=== PATIENT | female | born 1960 | race American Indian/Alaskan Native ===

== ENCOUNTER 2016-11-28 09:22 | Outpatient (CLI) | payer BC ==
--- NOTE | 2016-11-28 14:27 | Mammography Report ---
BILATERAL DIGITAL SCREENING MAMMOGRAM with CAD: 11/28/16 09:22:00 CLINICAL: Routine screening. COMPARISON:11/23/15 FINDINGS: The breasts are heterogeneously dense, which may obscure small masses. No mass, architectural distortion or suspicious calcifications. IMPRESSION: No mammographic evidence of malignancy. BI-RADS CATEGORY: 1 - - Negative RECOMMENDATION: Routine mammographic screening in one year. COMMENT: Patient follow-up letters are generated by our [employer] application.
== END 2016-11-28 09:23 | disposition home or self-care (01) ==
LOC: SPVWC 09:22
PROVIDERS: ATTEND Internal Medicine
DX: Z12.31 Encounter for screening mammogram for malignant neoplasm of breast (principal)
CPT/HCPCS: 77067; G0202

== ENCOUNTER 2017-04-27 09:18 | Outpatient (CLI) | payer BC ==
--- NOTE | 2017-04-29 09:31 | Vascular Lab Report ---
LOWER EXTREMITY ARTERIAL PHYSIOLOGIC STUDY: REASON FOR EXAM: Peripheral arterial disease. COMMENTS ON THE RIGHT: Ankle brachial index is 1.04. This value is normal. Toe brachial index is 1.02. This value is normal. Wound healing is likely. Pulse volume recording at the level of the ankle is normal. Exercise testing was not done. COMMENTS ON THE LEFT: Ankle brachial index is 1.04. This value is normal. Toe brachial index is 0.99. This value is normal. Wound healing is likely. Pulse volume recording at the level of the ankle is normal. Exercise testing was not done. IMPRESSION: RIGHT: No hemodynamically significant arterial disease. LEFT:No hemodynamically significant arterial disease.
== END 2017-04-27 09:19 | disposition home or self-care (01) ==
LOC: VAS 09:18
PROVIDERS: ATTEND Nurse Practitioner Family
DX: M79.605 Pain in left leg (principal)
CPT/HCPCS: 93922

== ENCOUNTER 2018-03-19 12:42 | Outpatient (CLI) | payer BC ==
--- NOTE | 2018-03-19 14:46 | Mammography Report ---
BILATERAL DIGITAL SCREENING MAMMOGRAM with CAD: 03/19/18 12:42:00 CLINICAL: Routine screening. COMPARISON:11/28/16 FINDINGS: The breasts are heterogeneously dense, which may obscure small masses. No mass, architectural distortion or suspicious calcifications. IMPRESSION: No mammographic evidence of malignancy. BI-RADS CATEGORY: 1 - - Negative RECOMMENDATION: Routine mammographic screening in one year. COMMENT: Patient follow-up letters are generated by our [employer] application.
== END 2018-03-19 12:43 | disposition home or self-care (01) ==
LOC: SPVWC 12:42
PROVIDERS: ATTEND Internal Medicine
DX: Z12.31 Encounter for screening mammogram for malignant neoplasm of breast (principal)
CPT/HCPCS: 77067

== ENCOUNTER 2019-04-22 08:23 | Outpatient (CLI) | payer BC ==
--- NOTE | 2019-04-25 10:17 | Mammography Report ---
DIGITAL SCREENING MAMMOGRAM WITH CAD, 04/22/2019 INDICATION: Routine screening mammography. TECHNIQUE: Digital bilateral 2D mammography was obtained in the craniocaudal and mediolateral obliq ue projections. This examination was interpreted with the benefit of Computer-Aided Detection analysi s. COMPARISON: 03/19/2018 FINDINGS: Breast Density: The breasts are heterogeneously dense, which may obscure small masses. There is no evidence of dominant mass, suspicious calcifications or architectural distortion in eithe r breast. IMPRESSION: No mammographic evidence of malignancy. Follow up recommendation: Routine yearly BI-RADS Category 1: Negative. A "normal" or negative report should not discourage follow up or biopsy of a clinically significant f inding. A written summary of these findings will be mailed to the patient. The patient will be entered into a mammography reporting system which will generate a reminder letter for the patient's next appointmen t at the appropriate interval. The [employer] recommends yearly mammograms starting at age 40 and continuing as l mario alberto as a woman is in good health. Breast MRI is recommended for women with an approximate 20-25% or greater lifetime risk of breast cancer, including women with a strong family history of breast or ova berenice cancer or who have been treated for Hodgkin's disease. Signer Name: Hayden Maza MD Signed: 04/25/2019 10:12 AM Workstation Name: [id number]
== END 2019-04-22 08:24 | disposition home or self-care (01) ==
LOC: SPVWC 08:23
PROVIDERS: ATTEND Internal Medicine
DX: Z12.31 Encounter for screening mammogram for malignant neoplasm of breast (principal)
CPT/HCPCS: 77067

== ENCOUNTER 2020-11-02 14:00 | Outpatient (CLI) | payer BC | END 2020-11-02 14:01 | disposition home or self-care (01) | LOC: SPVWC 14:00 | PROVIDERS: ATTEND Internal Medicine | DX: Z12.31 Encounter for screening mammogram for malignant neoplasm of breast (principal) | CPT/HCPCS: 77067 ==

== ENCOUNTER 2021-06-18 09:27 | Inpatient (IN) | payer BC ==
[2021-06-18 16:29] LABS: Basophils % (Auto) 0.3 % (0.0-1.8); Hematocrit 45.2 % (30.3-42.9); Hemoglobin 14.8 gm/dl (10.1-14.3); Lymphocytes # (Auto) 0.8 K/mm3 (1.2-5.4); Lymphocytes % (Auto) 7.9 % (13.4-35.0); Mean Corpuscular HGB Conc 33 % (30-34); Mean Corpuscular Volume 86 fl (79-97); Monocytes # (Auto) 0.9 K/mm3 (0.0-0.8); Monocytes % (Auto) 8.6 % (0.0-7.3); Platelet Count 142 K/mm3 (140-440); Red Blood Count 5.27 M/mm3 (3.65-5.03); Red Cell Distribution Width 14.7 % (13.2-15.2)
[2021-06-18 16:39] LABS: Alanine Aminotransferase 9 units/L (7-56); Albumin 4.5 g/dL (3.9-5); Blood Urea Nitrogen 13 mg/dL (7-17); Calcium 9.5 mg/dL (8.4-10.2); Hemolysis Index 8
[2021-06-18 17:05] LABS: BUN/Creatinine Ratio 19
[2021-06-18] MEDS ORDERED: SODIUM CHLORIDE 0.9% 1000 ML 1,000 ML IV ONE (20:25)
[2021-06-18] MEDS ORDERED: MORPHINE 4 MG/1 ML INJ IV ONE (20:25)
[2021-06-18] MEDS ORDERED: ONDANSETRON 4 MG/2 ML INJ IV ONE (20:25)
--- NOTE | 2021-06-18 20:26 | Emergency Department Report ---
ED General Adult HPI - General Chief complaint: Abdominal Pain Stated complaint: POSS APPENDICITIS Time Seen by Provider: 06/18/21 20:19 Source: patient, RN notes reviewed Mode of arrival: Ambulatory Limitations: No Limitations - History of Present Illness Initial comments: This patient is a pleasant and cooperative 61-year-old female, who was referred to the emergency room by her primary care doctor to rule out appendicitis she complains of suprapubic and right lower quadrant pain, with nausea since yesterday. Denies additional complaints. Positive anorexia. Reports that she still has her appendix. Has never had pain like this before. -: Gradual, days(s) Radiation: abdomen Quality: sharp Consistency: constant Improves with: rest Worsens with: movement - Related Data Allergies Allergy/AdvReac Type Severity Reaction Status Date / Time codeine Allergy Hives Verified 06/18/21 20:55 latex Allergy Hives Verified 06/18/21 20:55 Penicillins Allergy Hives Verified 06/18/21 20:55 Sulfa (Sulfonamide Allergy Hives Verified 06/18/21 20:55 Antibiotics) ED Review of Systems ROS: Stated complaint: POSS APPENDICITIS Other details as noted in HPI Constitutional: malaise, weakness. denies: fever Eyes: denies: vision change ENT: denies: epistaxis Respiratory: denies: cough Cardiovascular: denies: chest pain Gastrointestinal: abdominal pain, nausea, vomiting Genitourinary: denies: dysuria Musculoskeletal: back pain Neurological: weakness Hematological/Lymphatic: denies: easy bleeding ED Physical Exam - General Limitations: No Limitations General appearance: alert, in no apparent distress - Head Head exam: Present: atraumatic, normocephalic - Eye Eye exam: Present: normal appearance, EOMI. Absent: nystagmus - ENT ENT exam: Present: normal exam, normal orophraynx, mucous membranes moist, normal external ear exam - Neck Neck exam: Present: normal inspection, full ROM. Absent: tenderness, meningismus - Respiratory Respiratory exam: Present: normal lung sounds bilaterally. Absent: respiratory distress, wheezes, rales, rhonchi, stridor, chest wall tenderness - Cardiovascular Cardiovascular Exam: Present: regular rate, normal rhythm, normal heart sounds. Absent: bradycardia, tachycardia, irregular rhythm, systolic murmur, diastolic murmur, rubs, gallop - GI/Abdominal GI/Abdominal exam: Present: soft, tenderness, guarding (There is voluntary guarding), other (There is right lower quadrant tenderness). Absent: distended, rebound, rigid, pulsatile mass - Extremities Exam Extremities exam: Present: normal inspection, full ROM, other (2+ pulses noted in the bilateral upper and lower extremities. There is no palpable cord. negative Homans sign. Muscular compartments are soft. The pelvis is stable.). Absent: pedal edema, calf tenderness - Back Exam Back exam: Present: normal inspection, CVA tenderness (R). Absent: tenderness, paraspinal tenderness, vertebral tenderness - Neurological Exam Neurological exam: Present: alert, oriented X3, other (No facial droop. Tongue midline. Extraocular movements intact bilaterally. Facial sensation intact to light touch in V1, V2, V3 distribution bilaterally. 5 and a 5 strength in 4 extremities. Sensation intact to light touch in 4 extremities.). Absent: motor sensory deficit - Psychiatric Psychiatric exam: Present: anxious - Skin Skin exam: Present: warm, dry, intact, normal color. Absent: rash ED Course Vital Signs 06/18/21 06/18/21 06/18/21 10:14 20:35 20:36 Temperature 98.5 F 99.4 F Pulse Rate 68 67 Respiratory 18 15 18 Rate Blood Pressure 153/92 152/82 [Left] O2 Sat by Pulse 100 100 Oximetry O2 Sat by Pulse Oximetry [ Digit-Finger] 06/18/21 22:10 Temperature Pulse Rate Respiratory Rate Blood Pressure [Left] O2 Sat by Pulse Oximetry O2 Sat by Pulse 99 Oximetry [ Digit-Finger] - Reevaluation(s) Reevaluation #1: 06/18/21 21:06 Differential diagnosis, including not limited to: Appendicitis, inflammatory bowel disease, renal colic, obstruction, colitis, diverticulitis, perforation Assessment and plan: 61-year-old female presenting with suprapubic and right lower quadrant pain, with nausea and vomiting. She is tender with voluntary guarding. Very suspicious for appendicitis versus renal colic. Place patient on bus driver/monitor, start fluids, pain medication, nausea medication, obtain CT scan abdomen pelvis, and reassess. Discussed this plan of care with the patient. She is agreeable to the plan of care. Reassess after CT scan abdomen pelvis has resulted 06/18/21 22:09 CT scan confirms acute uncomplicated appendicitis. Antibiotics ordered. Patient still having pain, but slightly more comfortable. Requesting additional pain medication. Reports he can tolerate morphine/fentanyl/Dilaudid. General surgery consulted. Awaiting callback. Patient agreeable to admission hospitalization. All questions answered. Hospital physician, Dr. Ricardo Redd to admit to [facility] - Consultations Consultation #1: 06/18/21 22:13 Discussed the patient's history, physical, laboratory studies and imaging studies and CT scan findings with general surgery on-call, Dr. Judi Sosa She agrees with the plan of care, and will follow in consultation. - Pulse Oximetry Interpretation Digit-Finger Initial Pulse Oximetry Readin O2 Sat by Pulse Oximetry: 99 Actions Taken: none ED Medical Decision Making - Lab Data Result diagrams: 06/18/21 15:55 06/18/21 15:55 Vital Signs 06/18/21 06/18/21 06/18/21 10:14 20:35 20:36 Temperature 98.5 F 99.4 F Pulse Rate 68 67 Respiratory 18 15 18 Rate Blood Pressure 153/92 152/82 [Left] O2 Sat by Pulse 100 100 Oximetry Lab Results 06/18/21 06/18/21 06/18/21 Range/Units 15:55 15:55 Unknown WBC 10.0 (4.5-11.0) K/mm3 RBC 5.27 H (3.65-5.03) M/mm3 Hgb 14.8 H (10.1-14.3) gm/dl Hct 45.2 H (30.3-42.9) % MCV 86 (79-97) fl MCH 28 (28-32) pg MCHC 33 (30-34) % RDW 14.7 (13.2-15.2) % Plt Count 142 (140-440) K/mm3 Lymph % (Auto) 7.9 L (13.4-35.0) % [place] % (Auto) 8.6 H (0.0-7.3) % Eos % (Auto) 0.0 (0.0-4.3) % Baso % (Auto) 0.3 (0.0-1.8) % Lymph # (Auto) 0.8 L (1.2-5.4) K/mm3 [place] # (Auto) 0.9 H (0.0-0.8) K/mm3 Eos # (Auto) 0.0 (0.0-0.4) K/mm3 Baso # (Auto) 0.0 (0.0-0.1) K/mm3 Seg Neutrophils % 83.2 H (40.0-70.0) % Seg Neutrophils # 8.3 H (1.8-7.7) K/mm3 Sodium 141 (137-145) mmol/L Potassium 4.0 (3.6-5.0) mmol/L Chloride 101.0 (98-107) mmol/L Carbon Dioxide 26 (22-30) mmol/L Anion Gap 18 mmol/L BUN 13 (7-17) mg/dL Creatinine 0.7 (0.6-1.2) mg/dL Estimated GFR > 60 ml/min BUN/Creatinine Ratio 19 % Glucose 122 H (65-100) mg/dL Calcium 9.5 (8.4-10.2) mg/dL Total Bilirubin 0.80 (0.1-1.2) mg/dL AST 15 (5-40) units/L ALT 9 (7-56) units/L Alkaline Phosphatase 99 (35-129) units/L Total Protein 7.9 (6.3-8.2) g/dL Albumin 4.5 (3.9-5) g/dL Albumin/Globulin Ratio 1.3 % Urine Color Yellow (Yellow) Urine Turbidity Clear (Clear) Urine pH 5.0 (5.0-7.0) Ur Specific [place] 1.036 H (1.003-1.030) Urine Protein <15 mg/dl (Negative) mg/dL Urine Glucose (UA) >=500 (Negative) mg/dL Urine Ketones Tr (Negative) mg/dL Urine Blood Sm (Negative) Urine Nitrite Neg (Negative) Urine Bilirubin Neg (Negative) Urine Urobilinogen < 2.0 (<2.0) mg/dL Ur Leukocyte Esterase Neg (Negative) Urine WBC (Auto) 2.0 (0.0-6.0) /HPF Urine RBC (Auto) 3.0 (0.0-6.0) /HPF U Epithel Cells (Auto) 8.0 (0-13.0) /HPF Urine Mucus 1+ /HPF - EKG Data -: EKG Interpreted by [facility] EKG shows normal: sinus rhythm Rate: normal - EKG Data 06/18/21 21:06 The EKG is interpreted at 20: 40 Sinus rhythm, rate 78 bpm. Normal axis, normal P wave axis, QTC 49 ms, nonspecific T wave abnormality. This EKG is not a STEMI - Radiology Data Radiology results: pending, report reviewed, image reviewed CT ABDOMEN AND PELVIS WITH CONTRAST INDICATION / CLINICAL INFORMATION: Right lower quadrant abdominal pain. TECHNIQUE: Axial CT images were obtained through the abdomen and pelvis after IV contrast. All CT scans at this location are performed using CT dose reduction for ALARA by means of automated exposure control. COMPARISON: None available. FINDINGS: LOWER CHEST: No significant abnormality. LIVER: Large hepatic cyst measuring 6.6 x 2.3 cm. Additional scattered hypodensities are too small to characterize but also likely represent cysts. GALLBLADDER: No significant abnormality. BILE DUCTS: No significant abnormality. PANCREAS: No significant abnormality. SPLEEN: No significant a bnormality. ADRENALS: No significant abnormality. RIGHT KIDNEY / URETER: No significant abnormality. LEFT KIDNEY / URETER: No significant abnormality. STOMACH / SMALL BOWEL: No significant abnormality. COLON: No significant abnormality. APPENDIX: The appendix is dilated but is not clearly seen due to surrounding edema and fluid. No free air or organized abscess identified. PERITONEUM: There is free fluid in the right lower quadrant and right pelvis. LYMPH NODES: No significant adenopathy. AORTA / ARTERIES: No significant abnormality. IVC / VEINS: No significant abnormality. URINARY BLADDER: No significant abnormality. REPRODUCTIVE ORGANS: No significant abnormality. ADDITIONAL FINDINGS: None. SKELETAL SYSTEM: No significant abnormality. IMPRESSION: 1. Dilated appendix with surrounding fluid and stranding consistent with acute appendicitis. No free air or organized fluid collection identified. However, contained rupture cannot be excluded due to degree of inflammation in the right lower quadrant/pelvis. 2. Incidental findings as above. Signer Name: Inocencio Lares MD Signed: 06/18/2021 8:54 PM Workstation Name: [id number] Critical care attestation.: If time is entered above; I have spent that time in minutes in the direct care of this critically ill patient, excluding procedure time. ED Disposition Clinical Impression: Right lower quadrant abdominal pain, Nausea and vomiting, Acute appendicitis Disposition: 09 ADMITTED INPATIENT Is pt being admited?: Yes Does the pt Need Aspirin: No Condition: Good Instructions: Abdominal Pain (ED)
[2021-06-18 20:33] LABS: Bilirubin,Urine NEG (Negative); Blood,Urine SM (Negative); Color,Urine Yellow (Yellow); Mucus,Urine 1+ /HPF; Protein,Urine <15 mg/dL mg/dL (Negative); Urobilinogen,Urine < 2.0 mg/dL (<2.0)
--- NOTE | 2021-06-18 21:58 | Cat Scan Report ---
CT ABDOMEN AND PELVIS WITH CONTRAST INDICATION / CLINICAL INFORMATION: Right lower quadrant abdominal pain. TECHNIQUE: Axial CT images were obtained through the abdomen and pelvis after IV contrast. All CT sc ans at this location are performed using CT dose reduction for ALARA by means of automated exposure c ontrol. COMPARISON: None available. FINDINGS: LOWER CHEST: No significant abnormality. LIVER: Large hepatic cyst measuring 6.6 x 2.3 cm. Additional scattered hypodensities are too small to characterize but also likely represent cysts. GALLBLADDER: No significant abnormality. BILE DUCTS: No significant abnormality. PANCREAS: No significant abnormality. SPLEEN: No significant abnormality. ADRENALS: No significant abnormality. RIGHT KIDNEY / URETER: No significant abnormality. LEFT KIDNEY / URETER: No significant abnormality. STOMACH / SMALL BOWEL: No significant abnormality. COLON: No significant abnormality. APPENDIX: The appendix is dilated but is not clearly seen due to surrounding edema and fluid. No free air or organized abscess identified. PERITONEUM: There is free fluid in the right lower quadrant and right pelvis. LYMPH NODES: No significant adenopathy. AORTA / ARTERIES: No significant abnormality. IVC / VEINS: No significant abnormality. URINARY BLADDER: No significant abnormality. REPRODUCTIVE ORGANS: No significant abnormality. ADDITIONAL FINDINGS: None. SKELETAL SYSTEM: No significant abnormality. IMPRESSION: 1. Dilated appendix with surrounding fluid and stranding consistent with acute appendicitis. No free air or organized fluid collection identified. However, contained rupture cannot be excluded due to de gree of inflammation in the right lower quadrant/pelvis. 2. Incidental findings as above. Signer Name: Inocencio Lares MD Signed: 06/18/2021 9:54 PM Workstation Name: [id number]
[2021-06-18] MEDS ORDERED: metroNIDAZOLE/NS 500 MG/100 ML 500 MG/100 ML BAG IV ONE (22:07)
[2021-06-18] MEDS ORDERED: HYDROmorphone 1 MG/1 ML INJ IV ONE (22:09)
[2021-06-18] MEDS ORDERED: ONDANSETRON 4 MG/2 ML INJ IV PRN (22:53)
[2021-06-18] MEDS ORDERED: ACETAMINOPHEN 325 MG TAB PO PRN (22:53)
[2021-06-18] MEDS ORDERED: MAGNESIUM HYDROXIDE (MOM) ORAL LIQD UDC PO PRN (22:53)
--- NOTE | 2021-06-18 23:01 | History and Physical Report ---
History of Present Illness Date of examination: 06/18/21 Date of admission: 06/18/2021 Chief complaint: Abdominal pain History of present illness: 61-year-old -French female with no significant past medical history presenting the emergency room today complaining of abdominal pain. Patient had been referred to the emergency room by her primary care physician for possible appendicitis. She had complained of a pain in the lower part of her abdomen. She has had associated nausea but no vomiting and no diarrhea. She denies any constipation. Denies any fever or chills, no chest pain or shortness of breath, no hematuria or dysuria. No known relieving or exacerbating factor for the abdominal pain. Work-up in the emergency room today, CT of the abdomen and pelvis reveals findings consistent with acute appendicitis. General surgeon on-call has been consulted for further evaluation and recommendations. Patient has been commenced on analgesic medication, IV fluid and empiric IV antibiotics. Past History Past Medical History: No medical history Past Surgical History: No surgical history Social history: no significant social history Family history: no significant family history Medications and Allergies Allergies Allergy/AdvReac Type Severity Reaction Status Date / Time codeine Allergy Hives Verified 06/18/21 20:55 latex Allergy Hives Verified 06/18/21 20:55 Penicillins Allergy Hives Verified 06/18/21 20:55 Sulfa (Sulfonamide Allergy Hives Verified 06/18/21 20:55 Antibiotics) Active Meds: Active Medications Acetaminophen (Acetaminophen 325 Mg Tab) 650 mg PO Q4H PRN PRN Reason: Pain MILD(1-3)/Fever >100.5/NEGRO Levofloxacin/Dextrose (Levaquin 750mg/150ml) 750 mg in 150 mls @ 100 mls/hr IV ONCE ONE; Protocol Stop: 06/18/21 23:36 Ondansetron HCl (Ondansetron 4 Mg/2 Ml Inj) 4 mg IV Q8H PRN PRN Reason: Nausea And Vomiting Sodium Chloride (Sodium Chloride 0.9% 10 Ml Flush Syringe) 10 ml IV BID PRASHANT Review of Systems Constitutional: no fever, no chills Ears, nose, mouth and throat: no nasal congestion, no sore throat Cardiovascular: no chest pain, no orthopnea, no palpitations Respiratory: no cough, no shortness of breath Gastrointestinal: abdominal pain, nausea, vomiting, no diarrhea Musculoskeletal: no neck pain, no low back pain Integumentary: no rash, no pruritis Neurological: no headaches, no confusion Psychiatric: no anxiety, no depression Endocrine: no polyphagia, no polydipsia, no polyuria, no nocturia Exam - Constitutional Vitals: Temp Pulse Resp BP Pulse Ox 99.4 F 67 18 152/82 99 06/18/21 20:35 06/18/21 20:35 06/18/21 22:45 06/18/21 20:35 06/18/21 22:14 General appearance: Present: no acute distress, well-nourished - EENT Eyes: Present: PERRL, EOM intact. Absent: scleral icterus ENT: hearing intact, clear oral mucosa, dentition normal - Neck Neck: Present: supple, normal ROM - Respiratory Respiratory effort: normal Respiratory: bilateral: CTA - Cardiovascular Rhythm: regular Heart Sounds: Present: S1 & S2. Absent: gallop, systolic murmur, diastolic murmur, rub, click - Extremities Extremities: no ischemia, pulses intact, pulses symmetrical, No edema, normal temperature, normal color, Full ROM Peripheral Pulses: within normal limits - Abdominal General gastrointestinal: Present: soft, tender (Tenderness and guarding right lower quadrant ,No rebound tenderness.), non-distended, normal bowel sounds. Absent: mass - Integumentary Integumentary: Present: clear, warm, dry, normal turgor. Absent: rash - Musculoskeletal Musculoskeletal: strength equal bilaterally - Psychiatric Psychiatric: appropriate mood/affect, intact judgment & insight, memory intact, cooperative - Neurologic Neurologic: CNII-XII intact, no focal deficits, moves all extremities Results - Labs CBC & Chem 7: 06/18/21 15:55 06/18/21 15:55 Labs: Abnormal lab results 06/18/21 06/18/21 06/18/21 Range/Units 15:55 15:55 Unknown RBC 5.27 H (3.65-5.03) M/mm3 Hgb 14.8 H (10.1-14.3) gm/dl Hct 45.2 H (30.3-42.9) % Lymph % (Auto) 7.9 L (13.4-35.0) % [place] % (Auto) 8.6 H (0.0-7.3) % Lymph # (Auto) 0.8 L (1.2-5.4) K/mm3 [place] # (Auto) 0.9 H (0.0-0.8) K/mm3 Seg Neutrophils % 83.2 H (40.0-70.0) % Seg Neutrophils # 8.3 H (1.8-7.7) K/mm3 Glucose 122 H (65-100) mg/dL Ur Specific [place] 1.036 H (1.003-1.030) Assessment and Plan - Patient Problems (1) Acute appendicitis Current Visit: Yes Status: Acute Plan to address problem: Patient placed on IV fluid and analgesic medication. We make patient NPO. Consult placed to general surgeon for further evaluation and recommendations. (2) Nausea and vomiting Current Visit: Yes Status: Acute Plan to address problem: Possibly secondary to the acute appendicitis. Patient will be given antiemetic as needed. (3) DVT prophylaxis Current Visit: Yes Status: Acute Plan to address problem: Patient placed on sequential compression device. (4) Full code status Current Visit: Yes Status: Acute Plan to address problem: Patient is full code.
[2021-06-19] MEDS: MORPHINE 2 MG/1 ML INJ IV PRN ×2 (01:44→22:20)
[2021-06-19] MEDS: SODIUM CHLORIDE 0.9% 1000 ML 1,000 ML IV SCH ×2 (02:05→05:40)
[2021-06-19 05:15] LABS: Basophils % (Auto) 0.2 % (0.0-1.8); Eosinophils % (Auto) 0.1 % (0.0-4.3); Hematocrit 39.4 % (30.3-42.9); Hemoglobin 12.7 gm/dl (10.1-14.3); Lymphocytes # (Auto) 0.8 K/mm3 (1.2-5.4); Lymphocytes % (Auto) 9.5 % (13.4-35.0); Mean Corpuscular HGB Conc 32 % (30-34); Mean Corpuscular Volume 86 fl (79-97); Monocytes # (Auto) 0.8 K/mm3 (0.0-0.8); Monocytes % (Auto) 9.9 % (0.0-7.3); Platelet Count 122 K/mm3 (140-440); Red Cell Distribution Width 14.4 % (13.2-15.2)
[2021-06-19 05:37] LABS: BUN/Creatinine Ratio 18; Blood Urea Nitrogen 14 mg/dL (7-17); Calcium 8.4 mg/dL (8.4-10.2); Hemolysis Index 12
[2021-06-19] MEDS: metroNIDAZOLE/NS 500 MG/100 ML 500 MG/100 ML BAG IV SCH ×3 (05:38→22:09)
[2021-06-19] MEDS: MORPHINE 4 MG/1 ML INJ IV PRN ×2 (05:43→13:18)
--- NOTE | 2021-06-19 10:46 | Progress Note ---
Assessment and Plan Assessment and plan: 61-year-old -[place] female with no significant past medical history presented the emergency room today complaining of abdominal pain. Patient had been referred to the emergency room by her primary care physician for possible appendicitis. She had complained of a pain in the lower part of her abdomen. She had associated nausea but no vomiting and no diarrhea. Work-up in the emergency room revealed CT of the abdomen and pelvis with findings of acute appendicitis. General surgeon on-call was consulted for further evaluation and recommendations. Patient received analgesic medication, IV fluid and empiric IV antibiotics. Acute appendicitis Abdominal pain 06/19/2021. Await general surgery recommendations for probable lap appendectomy. Continue IV pain medications, IV fluids and IV antibiotics. History Interval history: No new issues overnight. Patient still complains of abdominal pain. Hospitalist Physical - Constitutional Vitals: Temp Pulse Resp BP Pulse Ox 98.5 F 66 18 98/52 98 06/19/21 04:42 06/19/21 04:42 06/19/21 04:42 06/19/21 04:42 06/19/21 04:42 General appearance: Present: no acute distress, well-nourished - EENT Eyes: Present: PERRL, EOM intact ENT: hearing intact, clear oral mucosa, dentition normal - Neck Neck: Present: supple, normal ROM - Respiratory Respiratory effort: normal Respiratory: bilateral: CTA - Cardiovascular Rhythm: regular Heart Sounds: Present: S1 & S2. Absent: gallop, rub - Extremities Extremities: no ischemia, No edema, Full ROM - Abdominal General gastrointestinal: soft, non-tender, non-distended, normal bowel sounds - Integumentary Integumentary: Present: clear, warm, dry - Neurologic Neurologic: CNII-XII intact, moves all extremities Results - Labs CBC & Chem 7: 06/19/21 04:27 06/19/21 04:27 Labs: Laboratory Last Values WBC 8.1 K/mm3 (4.5-11.0) 06/19/21 04:27 RBC 4.60 M/mm3 (3.65-5.03) 06/19/21 04:27 Hgb 12.7 gm/dl (10.1-14.3) 06/19/21 04:27 Hct 39.4 % (30.3-42.9) 06/19/21 04:27 MCV 86 fl (79-97) 06/19/21 04:27 MCH 28 pg (28-32) 06/19/21 04:27 MCHC 32 % (30-34) 06/19/21 04:27 RDW 14.4 % (13.2-15.2) 06/19/21 04:27 Plt Count 122 K/mm3 (140-440) L 06/19/21 04:27 Lymph % (Auto) 9.5 % (13.4-35.0) L 06/19/21 04:27 [place] % (Auto) 9.9 % (0.0-7.3) H 06/19/21 04:27 Eos % (Auto) 0.1 % (0.0-4.3) 06/19/21 04:27 Baso % (Auto) 0.2 % (0.0-1.8) 06/19/21 04:27 Lymph # (Auto) 0.8 K/mm3 (1.2-5.4) L 06/19/21 04:27 [place] # (Auto) 0.8 K/mm3 (0.0-0.8) 06/19/21 04:27 Eos # (Auto) 0.0 K/mm3 (0.0-0.4) 06/19/21 04:27 Baso # (Auto) 0.0 K/mm3 (0.0-0.1) 06/19/21 04:27 Seg Neutrophils % 80.3 % (40.0-70.0) H 06/19/21 04:27 Seg Neutrophils # 6.5 K/mm3 (1.8-7.7) 06/19/21 04:27 Sodium 141 mmol/L (137-145) 06/19/21 04:27 Potassium 4.3 mmol/L (3.6-5.0) 06/19/21 04:27 Chloride 104.2 mmol/L (98-107) 06/19/21 04:27 Carbon Dioxide 23 mmol/L (22-30) 06/19/21 04:27 Anion Gap 18 mmol/L 06/19/21 04:27 BUN 14 mg/dL (7-17) 06/19/21 04:27 Creatinine 0.8 mg/dL (0.6-1.2) 06/19/21 04:27 Estimated GFR > 60 ml/min 06/19/21 04:27 BUN/Creatinine Ratio 18 % 06/19/21 04:27 Glucose 95 mg/dL (65-100) 06/19/21 04:27 Calcium 8.4 mg/dL (8.4-10.2) 06/19/21 04:27 Total Bilirubin 0.80 mg/dL (0.1-1.2) 06/18/21 15:55 AST 15 units/L (5-40) 06/18/21 15:55 ALT 9 units/L (7-56) 06/18/21 15:55 Alkaline Phosphatase 99 units/L (35-129) 06/18/21 15:55 Total Protein 7.9 g/dL (6.3-8.2) 06/18/21 15:55 Albumin 4.5 g/dL (3.9-5) 06/18/21 15:55 Albumin/Globulin Ratio 1.3 % 06/18/21 15:55 Urine Color Yellow (Yellow) 06/18/21 Unknown Urine Turbidity Clear (Clear) 06/18/21 Unknown Urine pH 5.0 (5.0-7.0) 06/18/21 Unknown Ur Specific [place] 1.036 (1.003-1.030) H 06/18/21 Unknown Urine Protein <15 mg/dl mg/dL (Negative) 06/18/21 Unknown Urine Glucose (UA) >=500 mg/dL (Negative) 06/18/21 Unknown Urine Ketones Tr mg/dL (Negative) 06/18/21 Unknown Urine Blood Sm (Negative) 06/18/21 Unknown Urine Nitrite Neg (Negative) 06/18/21 Unknown Urine Bilirubin Neg (Negative) 06/18/21 Unknown Urine Urobilinogen < 2.0 mg/dL (<2.0) 06/18/21 Unknown Ur Leukocyte Esterase Neg (Negative) 06/18/21 Unknown Urine WBC (Auto) 2.0 /HPF (0.0-6.0) 06/18/21 Unknown Urine RBC (Auto) 3.0 /HPF (0.0-6.0) 06/18/21 Unknown U Epithel Cells (Auto) 8.0 /HPF (0-13.0) 06/18/21 Unknown Urine Mucus 1+ /HPF 06/18/21 Unknown Tan/IV: Voiding Method Toilet Active Medications - Current Medications Current Medications: Generic Name Dose Route Start Last Admin Trade Name Freq PRN Reason Stop Dose Admin Acetaminophen 650 mg 06/18/21 22:53 Acetaminophen 325 Mg Tab PO Q4H PRN Pain MILD(1-3)/Fever >100.5/NEGRO Sodium Chloride 1,000 mls @ 125 mls/hr 06/18/21 23:00 06/19/21 05:40 Nacl 0.9% 1000 Ml IV 125 mls/hr DIRECT PRASHANT Administration Levofloxacin/Dextrose 750 mg in 150 mls @ 100 mls/hr 06/19/21 22:00 Levaquin 750mg/150ml IV Q24H PRASHANT Protocol Metronidazole 500 mg in 100 mls @ 100 mls/hr 06/19/21 06:00 06/19/21 05:38 Flagyl 500 Mg/100 Ml IV 100 mls/hr Q8H PRASHANT Administration Protocol Magnesium Hydroxide 30 ml 06/18/21 22:53 Magnesium Hydroxide (Mom) Oral Liqd Udc PO Q4H PRN Constipation Morphine Sulfate 2 mg 06/18/21 22:53 06/19/21 01:44 Morphine 2 Mg/1 Ml Inj IV 2 mg Q4H PRN Administration Pain, Moderate (4-6) Morphine Sulfate 4 mg 06/18/21 22:53 06/19/21 05:43 Morphine 4 Mg/1 Ml Inj IV 4 mg Q4H PRN Administration Pain , Severe (7-10) Ondansetron HCl 4 mg 06/18/21 22:53 Ondansetron 4 Mg/2 Ml Inj IV Q8H PRN Nausea And Vomiting Sodium Chloride 10 ml 06/19/21 10:00 Sodium Chloride 0.9% 10 Ml Flush Syringe IV BID PRASHANT Sodium Chloride 10 ml 06/18/21 22:53 Sodium Chloride 0.9% 10 Ml Flush Syringe IV PRN PRN LINE FLUSH
[2021-06-19] MEDS ORDERED: SCOPOLAMINE TRANSDERMAL PATCH 72 HR TD NR (13:48)
--- NOTE | 2021-06-19 13:48 | Consultation ---
History of Present Illness Consult date: 06/19/21 Reason for consult: abdominal pain Chief complaint: abd pain - History of present illness History of present illness: 67-year-old female with no past medical history who presented to the emergency room with constant, sharp/crampy right lower quadrant abdominal pain that started 48 hours ago. The patient states that the pain started near the umbilicus and then radiated down towards the right lower quadrant and pelvic area. She states that the pain did not go away on its own which prompted her to come to the emergency room. No alleviating or exacerbating factors. The pain is associated with nausea and multiple episodes of nonbilious/nonbloody emesis. No fevers or chills, chest pain, shortness of breath. The patient states that she has had similar pain in the past however it is resolved on its own. She has a very remote history of an ovarian cyst which was treated with medications and resolved. Work-up in the emergency room included a CT scan which revealed appendicitis. Past History Past Medical History: No medical history Past Surgical History: hernia repair (Umbilical) Social history: no significant social history Family history: diabetes, hypertension Medications and Allergies Allergies Allergy/AdvReac Type Severity Reaction Status Date / Time codeine Allergy Hives Verified 06/18/21 20:55 latex Allergy Hives Verified 06/18/21 20:55 Penicillins Allergy Hives Verified 06/18/21 20:55 Sulfa (Sulfonamide Allergy Hives Verified 06/18/21 20:55 Antibiotics) Home Medications Medication Instructions Recorded Confirmed Last Taken Type Empagliflozin [Jardiance] 10 mg PO DAILY 06/19/21 06/19/21 Unknown History Omeprazole 10 mg PO DAILY 06/19/21 06/19/21 Unknown History Spironolactone [Aldactone] 50 mg PO QDAY 06/19/21 06/19/21 Unknown History Valsartan [Diovan] 160 mg PO QDAY 06/19/21 06/19/21 Unknown History carvediloL [Coreg] 1 tab PO TID 06/19/21 06/19/21 Unknown History Active Meds: Active Medications Acetaminophen (Acetaminophen 325 Mg Tab) 650 mg PO Q4H PRN PRN Reason: Pain MILD(1-3)/Fever >100.5/NEGRO Sodium Chloride (Nacl 0.9% 1000 Ml) 1,000 mls @ 125 mls/hr IV DIRECT PRASHANT Last Admin: 06/19/21 05:40 Dose: 125 mls/hr Levofloxacin/Dextrose (Levaquin 750mg/150ml) 750 mg in 150 mls @ 100 mls/hr IV Q24H PRASHANT; Protocol Metronidazole (Flagyl 500 Mg/100 Ml) 500 mg in 100 mls @ 100 mls/hr IV Q8H PRASHANT; Protocol Last Admin: 06/19/21 13:18 Dose: 100 mls/hr Magnesium Hydroxide (Magnesium Hydroxide (Mom) Oral Liqd Udc) 30 ml PO Q4H PRN PRN Reason: Constipation Morphine Sulfate (Morphine 2 Mg/1 Ml Inj) 2 mg IV Q4H PRN PRN Reason: Pain, Moderate (4-6) Last Admin: 06/19/21 01:44 Dose: 2 mg Morphine Sulfate (Morphine 4 Mg/1 Ml Inj) 4 mg IV Q4H PRN PRN Reason: Pain , Severe (7-10) Last Admin: 06/19/21 13:18 Dose: 4 mg Ondansetron HCl (Ondansetron 4 Mg/2 Ml Inj) 4 mg IV Q8H PRN PRN Reason: Nausea And Vomiting Sodium Chloride (Sodium Chloride 0.9% 10 Ml Flush Syringe) 10 ml IV BID PRASHANT Last Admin: 06/19/21 11:59 Dose: 10 ml Sodium Chloride (Sodium Chloride 0.9% 10 Ml Flush Syringe) 10 ml IV PRN PRN PRN Reason: LINE FLUSH Review of Systems All systems: negative (10 point ROS performed and negative except for that listed in HPI) Exam Vital Signs Temp Pulse Resp BP Pulse Ox 98.5 F 68 18 153/92 100 06/18/21 10:14 06/18/21 10:14 06/18/21 10:14 06/18/21 10:14 06/18/21 10:14 Narrative exam: Gen.: Awake, alert, oriented x3. Mild distress secondary to abdominal pain. ENT: Trachea midline. No lymphadenopathy. No scleral icterus or conjunctival pallor CV: S1, S2 present Respiratory: No audible wheezes Abdomen: Soft, nondistended, tenderness to palpation in the suprapubic area and right lower quadrant. Rebound in the left lower quadrant. Positive voluntary guarding. No rigidity. Well-healed infraumbilical surgical scar. Extremities: No clubbing, cyanosis, edema Results - Labs 06/19/21 04:27 06/19/21 04:27 Abnormal lab results 06/18/21 06/18/21 06/18/21 Range/Units 15:55 15:55 Unknown RBC 5.27 H (3.65-5.03) M/mm3 Hgb 14.8 H (10.1-14.3) gm/dl Hct 45.2 H (30.3-42.9) % Plt Count (140-440) K/mm3 Lymph % (Auto) 7.9 L (13.4-35.0) % [place] % (Auto) 8.6 H (0.0-7.3) % Lymph # (Auto) 0.8 L (1.2-5.4) K/mm3 [place] # (Auto) 0.9 H (0.0-0.8) K/mm3 Seg Neutrophils % 83.2 H (40.0-70.0) % Seg Neutrophils # 8.3 H (1.8-7.7) K/mm3 Glucose 122 H (65-100) mg/dL Ur Specific [place] 1.036 H (1.003-1.030) 06/19/21 Range/Units 04:27 RBC (3.65-5.03) M/mm3 Hgb (10.1-14.3) gm/dl Hct (30.3-42.9) % Plt Count 122 L (140-440) K/mm3 Lymph % (Auto) 9.5 L (13.4-35.0) % [place] % (Auto) 9.9 H (0.0-7.3) % Lymph # (Auto) 0.8 L (1.2-5.4) K/mm3 [place] # (Auto) (0.0-0.8) K/mm3 Seg Neutrophils % 80.3 H (40.0-70.0) % Seg Neutrophils # (1.8-7.7) K/mm3 Glucose (65-100) mg/dL Ur Specific [place] (1.003-1.030) Diabetes panel 06/18/21 06/19/21 Range/Units 15:55 04:27 Sodium 141 141 (137-145) mmol/L Potassium 4.0 4.3 (3.6-5.0) mmol/L Chloride 101.0 104.2 (98-107) mmol/L Carbon Dioxide 26 23 (22-30) mmol/L BUN 13 14 (7-17) mg/dL Creatinine 0.7 0.8 (0.6-1.2) mg/dL Glucose 122 H 95 (65-100) mg/dL Calcium 9.5 8.4 (8.4-10.2) mg/dL AST 15 (5-40) units/L ALT 9 (7-56) units/L Alkaline Phosphatase 99 (35-129) units/L Total Protein 7.9 (6.3-8.2) g/dL Albumin 4.5 (3.9-5) g/dL Calcium panel 06/18/21 06/19/21 Range/Units 15:55 04:27 Calcium 9.5 8.4 (8.4-10.2) mg/dL Albumin 4.5 (3.9-5) g/dL Pituitary panel 06/18/21 06/19/21 Range/Units 15:55 04:27 Sodium 141 141 (137-145) mmol/L Potassium 4.0 4.3 (3.6-5.0) mmol/L Chloride 101.0 104.2 (98-107) mmol/L Carbon Dioxide 26 23 (22-30) mmol/L BUN 13 14 (7-17) mg/dL Creatinine 0.7 0.8 (0.6-1.2) mg/dL Glucose 122 H 95 (65-100) mg/dL Calcium 9.5 8.4 (8.4-10.2) mg/dL Adrenal panel 06/18/21 06/19/21 Range/Units 15:55 04:27 Sodium 141 141 (137-145) mmol/L Potassium 4.0 4.3 (3.6-5.0) mmol/L Chloride 101.0 104.2 (98-107) mmol/L Carbon Dioxide 26 23 (22-30) mmol/L BUN 13 14 (7-17) mg/dL Creatinine 0.7 0.8 (0.6-1.2) mg/dL Glucose 122 H 95 (65-100) mg/dL Calcium 9.5 8.4 (8.4-10.2) mg/dL Total Bilirubin 0.80 (0.1-1.2) mg/dL AST 15 (5-40) units/L ALT 9 (7-56) units/L Alkaline Phosphatase 99 (35-129) units/L Total Protein 7.9 (6.3-8.2) g/dL Albumin 4.5 (3.9-5) g/dL - Imaging CT scan - abdomen: report reviewed, image reviewed US - abdomen: report reviewed, image reviewed Assessment and Plan 61 yo F with RLQ pain, CT scan with appendicitis Plan: 1. NPO 2. IVf 3. IV abx 4. prn pain and nausea control - add scopolamine patch 5. DVT prophylaxis 6. Discussed lab and imaging results with patient. I personally reviewed CT images and discussed with in house radiologist. Appendix not completely clearly visualized but appears to be involved in area of fat stranding and mild fluid in the right pelvic area. Explained to patient that I recommend diagnostic laparoscopy, appendectomy. There is a small chance that the source of the pain is not the appendix as it is not seen in its entirety on CT scan. She understands and wishes to proceed. Consent obtained for dx lap, appendectomy, possible exploratory laparotomy. Will add to OR schedule for today. Thank you for this consultation. Please call with any questions or concerns. Evaluation and treatment of this patient was during the time of the national and state emergency arising from COVID19 coronavirus pandemic. Treatment and procedures performed meet the current and available best practice and guidelines for patient during the COVID pandemic.
[2021-06-19] MEDS ORDERED: BUPIVACAINE/PF (0.5%) 5 MG/1 ML 30 ML VIAL INFILTRATI ONE ×2 (14:25→15:26)
[2021-06-19] MEDS ORDERED: LIDOCAINE (1%) 10 MG/1 ML VIAL 20 ML MDV ONE (14:25)
[2021-06-19] MEDS ORDERED: ONDANSETRON 4 MG/2 ML INJ IV PRN (14:29)
[2021-06-19] MEDS ORDERED: HYDROmorphone 1 MG/1 ML INJ IV PRN (14:29)
[2021-06-19] MEDS ORDERED: fentaNYL 100 MCG/2 ML INJ ONE (14:42)
[2021-06-19] MEDS ORDERED: ROCURONIUM 50 MG/5 ML INJ IV ONE (14:42)
[2021-06-19] MEDS ORDERED: MIDAZOLAM 2 MG/2 ML INJ ONE (14:42)
[2021-06-19] MEDS ORDERED: propofoL 200 MG/20 ML VIAL IV ONE (14:42)
[2021-06-19] MEDS ORDERED: WATER FOR IRRIG STERILE 1,500 ML BOTTLE IR ONE (15:27)
[2021-06-19] MEDS ORDERED: LIDOCAINE (1%) 10 MG/1 ML VIAL 20 ML MDV INFILTRATI ONE (15:27)
[2021-06-19] MEDS ORDERED: NEOSTIGMINE 10MG/10 ML INJ MDV ONE (15:33)
[2021-06-19] MEDS ORDERED: GLYCOPYRROLATE 0.4 MG/2 ML INJ ONE (15:33)
[2021-06-19] MEDS ORDERED: HYDROcodone/ACETAMINOPHEN 5-325 MG TAB PO PRN (15:42)
--- NOTE | 2021-06-19 15:44 | Anesthesia Day of Surgery ---
Anesthesia Day of Surgery - Day of Surgery Patient Examined: Yes Patient H&P Reviewed: Yes Patient is NPO: Yes
--- NOTE | 2021-06-19 15:44 | Anesthesia Consultation ---
Anesthesia Consult and Med Hx Date of service: 06/19/21 - Airway Anesthetic Teeth Evaluation: Good (right lower premolar implant) ROM Head & Neck: Adequate Mental/Hyoid Distance: Adequate Mallampati Class: Class III Intubation Access Assessment: Possibly Difficult - Pre-Operative Health Status ASA Pre-Surgery Classification: ASA2 Proposed Anesthetic Plan: General - Pulmonary Hx Smoking: No Hx Respiratory Symptoms: No - Cardiovascular System Hx Hypertension: Yes Hx Heart Attack/AMI: No - Central Nervous System CVA: No - Endocrine Hx Renal Disease: No Hx Liver Disease: No Hx Non-Insulin Dependent Diabetes: Yes Hx Thyroid Disease: No - Additional Comments Anesthesia Medical History Comments: Hx PONV w/ previous anesthetics.
--- NOTE | 2021-06-19 15:48 | Operative Report ---
Operative Report Operative Report: Date of operation: 06/19/21 Preoperative diagnosis: acute appendicitis Postoperative diagnosis: Acute appendicitis with localized abscess Procedure performed: Laparoscopic appendectomy Surgeon: Raven Sosa DO Anesthesia: GETA, local Findings: Extremely inflamed and thickened tip of the appendix with localized perforation and abscess, pelvic position EBL:<5cc [place]: 100 cc Specimen: appendix Disposition/Condition: stable to PACU HPI and indication: 61 yo F who presented to ER with RLQ pain, n/v. She was fo und to have right lower quadrant pain and acute appendicitis on CT scan. Appendectomy was recommended. All risks, benefits, alternatives to surgery were discussed with the patient questions answered. Consent was obtained. Procedure in detail: Patient was identified in the preop area and taken back to the OR and placed on the OR table in supine position. After anesthesia was induced a [place] catheter was steriley placed by the circulating nurse. The left arm was tucked and all bony prominences padded appropriately. the abdomen was prepped and draped in the usual sterile fashion and a timeout performed. Local anesthetic was infilitrated into all skin incision sites. A supraumbilical incision was made and veress needle inserted. The positioning of the veress needle was confirmed using the saline drop test. The abdomen was insufflated to 15 mmHg without incident. The Veress needle was then removed. A 5mm Optiview trocar was placed through the supraumbilical incision. The abdomen was inspected and no underlying injury to the abdominal structures was identified. A 12 mm LLQ trocar and 5 mm right upper quadrant trocar were placed under direct visualization. The patient was placed in Trendelenburg and tilted to the left. The small bowel was retracted out of the pelvis. The base of the appendix was identified and traced towards the tip. The tip of the appendix was indurated and had inflammatory adhesions to an epiploic appendage of the distal sigmoid colon along with the pelvic wall near the right ovary and fallopian tube. These adhesions were taken down bluntly. During adhesiolysis and abscess cavity was unroofed at the tip of the appendix. The pus was evacuated. The appendix was completely mobilized and freed from the adhesions. The mesentery of the append ix was then ligated using the harmonic scalpel. The dissection was carried down towards the base of the appendix. The base and mid body of the appendix was soft and not inflamed. The base of the appendix was transected using an ethicon flex stapler 45mm white load. The appendix was placed into an endocatch bag and removed via the 12 mm port. This was passed off the table as specimen. The staple line and mesentery were then inspected and no bleeding visualized. The patient was placed in neutral position. The pelvis was irrigated and all irrigant returned clear. The 12 mm port fascia was closed with a single interrupted 0 vicryl stitch using the Arnulfo Allison device. The remaining ports were removed under direct visualization and the abdomen desufflated. All skin incisions were closed using 4-0 monocryl subcuticular stitches and skin glue. Local anesthetic was once again infiltrated into all skin incision sites. At the end of the case, all sponge, instrument, sharp counts were correct x2. The patient was awoken from anesthesia, [place] catheter removed, and she was taken to PACU in stable condition.
[2021-06-19] MEDS ORDERED: NALOXONE 0.4 MG/1 ML INJ ONE (15:50)
[2021-06-19] MEDS ORDERED: LACTATED RINGERS 1,000 ML ONE (16:05)
--- NOTE | 2021-06-19 18:58 | Post Anesthesia Evaluation ---
- Post Anesthesia Evaluation Patient Participated: Yes Airway Patent: Yes Stable Respiratory Function: Yes Nausea/Vomiting: No Temp > 96.8F: Yes Pain Manageable: Yes Adequeate Hydration: Yes Anesthesia Complications: No
[2021-06-20] MEDS: metroNIDAZOLE/NS 500 MG/100 ML 500 MG/100 ML BAG IV SCH ×2 (05:15→13:41)
--- NOTE | 2021-06-20 09:11 | Progress Note ---
Assessment and Plan 61 yo F s/p lap appendectomy, POD 1 1. acute appendicitis with localized abscess Plan: 1. Reg diet 2. dc IVF 3. prn PO pain control 4. continue abx - 7 total days 5. IS/pulm toilet 6. DVT ppx 7. May dc home - patient given verbal and written instructions and advised to make an appt to follow up with me in 2 wks Thank you, please call with questions Subjective Date of service: 06/20/21 Narrative: Pt seen and examined. No acute complaints. States she feels much better. Raghav PO. Urinating. No f/c. No n/v Objective Vital Signs - 12hr 06/19/21 06/20/21 23:14 01:09 Temperature 98.3 F Pulse Rate 78 Respiratory 20 Rate Blood Pressure 150/78 O2 Sat by Pulse 96 97 Oximetry - General physical appearance Narrative Exam: Gen.: Awake, alert, oriented x3. No apparent distress ENT: Trachea midline. No lymphadenopathy. No scleral icterus or conjunctival pallor CV: S1, S2 present Respiratory: No audible wheezes Abdomen: Soft, nondistended Extremities: No clubbing, cyanosis, edema - Labs 06/19/21 04:27 06/19/21 04:27
--- NOTE | 2021-06-20 09:24 | Discharge Summary ---
Providers - Providers Date of Admission: 06/18/21 22:53 Date of discharge: 06/20/21 Attending physician: LISET GARCIA 06/18/21 22:07 Consult to Physician [CONS] Stat Comment: Dr. Rick spoke with Dr. Aguirre @ [id number] Consulting Provider: PENNY AGUIRRE Physician Instructions: Reason For Exam: acute appendiciits Primary care physician: TALYA GOULD Hospitalization Reason for admission: Appendicitis Condition: Good Hospital course: 61-year-old -[place] female with no significant past medical history presented the emergency room complaining of abdominal pain. Patient had been referred to the emergency room by her primary care physician for possible appendicitis. She had complained of a pain in the lower part of her abdomen. She had associated nausea but no vomiting and no diarrhea. Work-up in the emergency room revealed CT of the abdomen and pelvis with findings of acute appendicitis. The patient was admitted with diagnosis of abdominal pain secondary to acute appendicitis general surgeon on-call was consulted for further evaluation and recommendations. Patient received analgesic medication, IV fluid and empiric IV antibiotics. The patient was taken to the OR for lap appendectomy and findings were consistent with acute appendicitis with localized abscess. Patient did well postoperatively and diet was advanced which she tolerated. Surgery recommended continue antibiotics for total of 7 days and follow-up with surgery as an outpatient. Dedicated discharge time 35 minutes. Disposition: 01 HOME / SELF CARE / HOMELESS Final Discharge Diagnosis (Prints w/discharge instructions): Acute appendicitis with localized abscess, abdominal pain Core Measure Documentation - Palliative Care Palliative Care/ Comfort Measures: Not Applicable - Core Measures Any of the following diagnoses?: none Exam - Constitutional Vitals: Temp Pulse Resp BP Pulse Ox 98.3 F 78 20 150/78 97 06/19/21 23:14 06/19/21 23:14 06/19/21 23:14 06/19/21 23:14 06/20/21 01:09 General appearance: Present: no acute distress, well-nourished - EENT Eyes: Present: PERRL ENT: hearing intact, clear oral mucosa - Neck Neck: Present: supple, normal ROM - Respiratory Respiratory effort: normal Respiratory: bilateral: CTA - Cardiovascular Heart Sounds: Present: S1 & S2. Absent: rub, click - Extremities Extremities: pulses symmetrical, No edema Peripheral Pulses: within normal limits - Abdominal General gastrointestinal: Present: soft, non-tender, non-distended, normal bowel sounds Female genitourinary: Present: normal - Integumentary Integumentary: Present: clear, warm, dry - Musculoskeletal Musculoskeletal: gait normal, strength equal bilaterally - Psychiatric Psychiatric: appropriate mood/affect, intact judgment & insight - Neurologic Neurologic: CNII-XII intact, moves all extremities Plan Activity: advance as tolerated Weight Bearing Status: Weight Bear as Tolerated Diet: regular Wound: per your surgeon's advice Follow up with: TALYA GOULD MD [Primary Care Provider] - 7 Days PENNY AGUIRRE DO [Staff Physician] - 7 Days Prescriptions: HYDROcodone/APAP 5-325 [[place] 5-325 mg TAB] 1 each PO Q4H PRN #8 tablet PRN Reason: Pain, Moderate (4-6)
[2021-06-20 12:21] VITALS: BP 156/82
== END 2021-06-20 17:49 | disposition home or self-care (01) | DRG 340 ==
LOC: ED 09:27 → 3A 22:53
PROVIDERS: ADMIT Internal Medicine Geriatric Medicine; ATTEND Hospitalist
PROC: 0DTJ4ZZ Resection of Appendix, Percutaneous Endoscopic Approach (ICD-10-PCS; principal; 2021-06-19)
DX: K35.33 Acute appendicitis with perforation, localized peritonitis, and gangrene, with abscess (principal); E11.9 Type 2 diabetes mellitus without complications; Z88.0 Allergy status to penicillin; Z88.2 Allergy status to sulfonamides; Z88.6 Allergy status to analgesic agent; Z91.040 Latex allergy status; Z83.3 Family history of diabetes mellitus; Z82.49 Family history of ischemic heart disease and other diseases of the circulatory system
CPT/HCPCS: 36415; 74177; 80048; 80053; 81001; 82962; 85025; 88304; 93005; G0378; J1815; J3490; J7517; J1170; J1956; J2250; J2270; J2310; J2405; J2704; J2710; J3010; J7030; J7120; Q9967